=== PATIENT | male | born 1990 | race African-American/Black ===

== ENCOUNTER 2024-11-18 18:33 | Emergency (ER) | payer OTHER ==
[~2024-11-18 18:33] MED LIST: ASMANEX220 MCG INH; BENTYL10 MG PO; CLARITIN10 MG PO; FLEXERIL10 MG PO; HYDROCODONE BIT1 T11 PO; KEFLEX500 MG PO; NAPROSYN500 MG PO; NEXICLON X0.09 MG/ML PO; NORTRIPTYLINE10 MG PO; PEPCID20 MG PO; PRILOSEC20 MG PO; VENTOLIN0.09 MG/AC INH; ZITHROMAX Z PA250 MG PO; ZOFRAN ODT4 MG SL; [UNRECOGNIZED DRUG - OTHER] NS
[2024-11-18] MEDS ORDERED: traMADol Hydrochloride 50 MG TAB PO ONE (19:20)
[2024-11-18] MEDS ORDERED: CYCLOBENZAPRINE5 M3 PO (21:28)
== END 2024-11-18 21:16 | disposition home or self-care (01) ==
LOC: ED 18:33
DX: M62.838 Other muscle spasm (principal); M79.622 Pain in left upper arm; R10.9 Unspecified abdominal pain; Z88.8 Allergy status to other drugs, medicaments and biological substances; V43.52XA Car driver injured in collision with other type car in traffic accident, initial encounter; Y93.I9 Activity, other involving external motion; Y92.488 Other paved roadways as the place of occurrence of the external cause; Y99.8 Other external cause status